=== PATIENT | male | born 1975 | race Caucasian/White ===

== ENCOUNTER → 2017-08-04 | Outpatient (CLI) | payer BC ==
[~2017-08-04] MED LIST: COLACE100 MG PO; PERCOCET 5/31 TABLET PO; TRAMADOL HCL50 MG PO; TYLENOL REGULA325 MG PO
== END | disposition home or self-care (01) ==
LOC: CDC 11:30
DX: Z01.810 Encounter for preprocedural cardiovascular examination (principal); G56.01 Carpal tunnel syndrome, right upper limb; R94.31 Abnormal electrocardiogram [ECG] [EKG]
CPT/HCPCS: 93000